=== PATIENT | male | born 1975 | race Two or more races ===

== ENCOUNTER → 2023-11-05 16:42 | Outpatient (REF) | payer BC, SELFPAY | LOC: HWRAD 16:42 | PROVIDERS: ATTENDING PHYSICIAN Student in an Organized Health Care Education/Training Program; FAMILY PHYSICIAN Family Medicine | DX: R05.9 Cough, unspecified (principal) | CPT/HCPCS: 71046 ==

== ENCOUNTER → 2024-03-14 11:09 | Outpatient (REF) | payer BC, SELFPAY | LOC: HWRCS 11:09 | PROVIDERS: ATTENDING PHYSICIAN Internal Medicine Cardiovascular Disease; FAMILY PHYSICIAN Family Medicine | DX: N52.9 Male erectile dysfunction, unspecified (principal); E11.9 Type 2 diabetes mellitus without complications; E78.00 Pure hypercholesterolemia, unspecified; R53.83 Other fatigue | CPT/HCPCS: 93306 ==

== ENCOUNTER → 2025-02-28 10:33 | Outpatient (REF) | payer BC, SELFPAY | LOC: RAD 10:33 | PROVIDERS: ATTENDING PHYSICIAN Student in an Organized Health Care Education/Training Program | DX: G89.29 Other chronic pain (principal) | CPT/HCPCS: 73030 ==